=== PATIENT | female | born 1970 | race Caucasian/White ===

== ENCOUNTER → 2023-07-13 06:13 | Day surgery (SDC) | payer OTHER, SELFPAY ==
[2023-06-25 13:50] LABS: Hematocrit 37.2 % (37.0-47.0); Hemoglobin 13.1 g/dL (12.0-16.0); Mean Corp Hgb Conc. 35.2 g/dL (33.0-37.0); Mean Corpuscular Volume 93.7 fL (81.0-99.0); Mean Platelet Volume 9.2 fL (7.4-10.4); Platelet Count 387 10^3/uL (130-400); Red Blood Cell Count 3.97 10^6/uL (4.20-5.40); Red Cell Dist. Width 13.4 % (11.5-14.5); White Blood Cell Count 8.5 10^3/uL (4.8-10.8)
[2023-06-25 14:34] LABS: ALT (SGPT) 24 U/L (0-35); AST (SGOT) 35 U/L (14-36); Albumin 4.5 g/dl (3.5-5.0); Alkaline Phosphatase 87 U/L (38-126); Blood Urea Nitrogen 12 mg/dl (7-17); Calcium 9.8 mg/dl (8.4-10.2); Carbon Dioxide 23 mmol/L (22-30); Chloride 102 mmol/L (98-107); Estimated Creatinine Clearance 84 ml/min; Glucose 96 mg/dl (70-99); Potassium 4.6 mmol/L (3.5-5.1); Sodium 133 mmol/L (135-145); Total Bilirubin 0.3 mg/dl (0.2-1.3); eGFR > 60.00
[2023-07-13] VITALS (10 sets, daily range): BP systolic 72–116; BP diastolic 52–70
[2023-07-13] MEDS: NORMOSOL-R 1000 IV (07:50)
[2023-07-13] MEDS: SUBLIMAZE 25 MCG IV (10:52)
[2023-07-13] MEDS: TYLENOL 650 MG PO (11:54)
--- NOTE | 2023-07-13 12:28 | SUR.PHASEI ---
pacu addendum - patient to pacu post op - delirium - crying - confused to time and place, thinks she has pain - but more concerned with needing something to drink, 'wine would be good'. BP low but stable, reoriented to time and place, allowed to
verbalize, calms, bp improves - difficulty rating pain - eventually rates as 6/10. lower dose of fentanyl given with low BP and confusion. patient states pain has lessened but nose is ' sore.' Anxious for discharge and to use bathroom - refuses
bedpan. no bleeding. When SDS nurse arrives - describes pain at 6-7/10. agrees to take oral pain med in sds.
== END ==
LOC: SDS 06:13
PROVIDERS: ATTENDING PHYSICIAN Otolaryngology Facial Plastic Surgery; FAMILY PHYSICIAN Family Medicine
DX: J34.2 Deviated nasal septum (principal); J34.89 Other specified disorders of nose and nasal sinuses
CPT/HCPCS: 30520; 88300; 36415; 80053; 85027; 93005

== ENCOUNTER 2024-04-28 02:51 | Emergency (ER) | payer OTHER, SELFPAY ==
[2024-04-28 02:52] VITALS: BP 116/90
[2024-04-28 03:25] VITALS: BP 98/71
[2024-04-28 03:35] LABS: % Basophils 1.4 % (0-2); % Eosinophils 13.6 % (0-6); % Immature Granulocytes 0.2 % (0-0.5); % Lymphocytes 46.1 % (20.5-51.1); % Monocytes 7.7 % (1.7-9.3); Absolute Basophils 0.1 10^3/uL (0-0.2); Absolute Eosinophils 1.3 10^3/uL (0-0.7); Absolute Lymphocytes 4.3 10^3/uL (1.2-3.4); Absolute Monocytes 0.7 10^3/uL (0.1-0.6); Absolute Neutrophils 2.9 10^3/uL (1.4-6.5); Hematocrit 30.7 % (37.0-47.0); Hemoglobin 11.3 g/dL (12.0-16.0); Mean Corp Hgb Conc. 36.8 g/dL (33.0-37.0); Mean Corpuscular Hgb 33.6 pg (27.0-31.0); Mean Corpuscular Volume 91.4 fL (81.0-99.0); Mean Platelet Volume 8.7 fL (7.4-10.4); Nucleated Red Blood Cells % 0 %; Platelet Count 234 10^3/uL (130-400); Red Blood Cell Count 3.36 10^6/uL (4.20-5.40); Red Cell Dist. Width 13.4 % (11.5-14.5); White Blood Cell Count 9.3 10^3/uL (4.8-10.8)
[2024-04-28 03:47] LABS: ALT (SGPT) 31 U/L (0-35); AST (SGOT) 48 U/L (14-36); Albumin 4.2 g/dl (3.5-5.0); Alkaline Phosphatase 98 U/L (38-126); Blood Urea Nitrogen 8 mg/dl (7-17); Carbon Dioxide 21 mmol/L (22-30); Chloride 100 mmol/L (98-107); Glucose 103 mg/dl (70-99); Potassium 4.3 mmol/L (3.5-5.1); Sodium 130 mmol/L (135-145); Total Bilirubin 0.2 mg/dl (0.2-1.3); Total Protein 6.4 g/dl (6.3-8.2); eGFR > 60.00
[2024-04-28 03:49] LABS: PT 12.5 Sec (11.4-14.6)
--- NOTE | 2024-04-28 04:19 | ED.GENMED ---
History of Present Illness
General
Chief Complaint: Rectal Bleeding
Source: patient and family
Time Seen by Provider: 04/28/24 03:44
History of Present Illness
History of Present Illness:
53-year-old female who presents with rectal bleeding. The patient states that for about 2 years, she has had 'my colon hanging out'. Patient states that it seems to be getting worse. Patient sister states that now she has had bleeding and has had
blood into the toilet. Patient denies abdominal pain or vomiting.
Past History
Past History
ED Past Medical History: GERD and HTN
Phy Exam
Physical Exam
Physical Exam:
CONSTITUTIONAL Patient alert and oriented to person, place and time. Well-appearing. Vital signs reviewed.
HEAD atraumatic, normocephalic.
EYES eyelids normal to inspection, Extraocular muscles intact, Conjunctiva normal, Sclera normal.
NECK normal range of motion, Trachea midline, no jugular venous distention.
RESPIRATORY CHEST No respiratory distress noted, Chest expansion equal,
ABDOMEN No distention.
Rectal exam rectal prolapse noted. Reduced during exam. She does have excoriation of the prolapse segment
BACK normal inspection, no obvious deformities
UPPER EXTREMITY range of motion normal, Motor strength normal, no cyanosis, no edema.
LOWER EXTREMITY range of motion normal, Motor strength normal, no cyanosis, no edema.
NEURO Speech normal, No focal motor deficits, [place] coma scale 15, Memory normal, Cranial Nerves intact to screening exam.
SKIN skin warm, dry, and normal in color.
Course
Orders/Labs/Results
Orders:
Orders
04/28/24 03:23
Cardiac Monitoring- Treatment ONCE
04/28/24 03:25
ABO2 Urgent
BBK Wristband Number:
Associate notified that ABO2 has been ordered: SOBIA
Date: 04/28/24
Time: 03:41
Through Freight Engineer ID: [id number]
Complete Blood Count/With Diff Urgent
Comprehensive Metabolic Panel Urgent
PTT Urgent
Prothrombin Time Urgent
Abnormal Lab Results
04/28/24
03:25
RBC 3.36 L 10^6/uL
(4.20-5.40)
Hgb 11.3 L g/dL
(12.0-16.0)
Hct 30.7 L %
(37.0-47.0)
MCH 33.6 H pg
(27.0-31.0)
Absolute Lymphs (auto) 4.3 H 10^3/uL
(1.2-3.4)
Absolute Monos (auto) 0.7 H 10^3/uL
(0.1-0.6)
Absolute Eos (auto) 1.3 H 10^3/uL
(0-0.7)
Neutrophils % 31.0 L %
(42.2-75.2)
Eosinophils % 13.6 H %
(0-6)
Sodium 130 L mmol/L
(135-145)
Carbon Dioxide 21 L mmol/L
(22-30)
Creatinine 0.5 L mg/dL
(0.6-1.0)
Glucose 103 H mg/dl
(70-99)
AST 48 H U/L
(14-36)
04/28/24 03:25
04/28/24 03:25
Vital Signs
Initial and Last Documented VS:
Initial Vital Signs
Temp Pulse Resp BP Pulse Ox
97.8 F 102 22 116/90 97
04/28/24 02:52 04/28/24 02:52 04/28/24 02:52 04/28/24 02:52 04/28/24 02:52
Last Documented Vital Signs
Temp Pulse Resp BP Pulse Ox
97.8 F 83 20 98/71 96
04/28/24 02:52 04/28/24 04:04 04/28/24 04:04 04/28/24 03:25 04/28/24 04:04
MDM/Problems Addressed
Differential Diagnosis Includes:
Hemorrhoids, perianal abscess, rectal prolapse
MDM/Problems Addressed:
Rectal prolapse
*Pulse Oximetry
Patient hypoxic: no
*Critical Care Note
Total Time (30-74mins, 75-104mins- exclusive of procedures): Not Applicable
Data Reviewed
Source: patient and family
Patient Management
Escalation/DeEscalation of care consider admission/obs:
Rectal prolapse reduced. Recommended stool softeners and outpatient colorectal follow-up.
ED Attending Note
-
Portions of this chart may have been created with voice recognition software.� Occasional wrong word or��sound alike� substitutions may have occurred due to the inherent limitations of voice recognition software.
Discharge Plan
Departure
Patient Disposition: Home (Routine Discharge)
Date of Disposition: 04/28/24
Time of Disposition: 04:19
Patient with high blood pressure during this ER visit?: No
Discharge Problem:
Rectal prolapse
Instructions: Rectal prolapse in adults
Prescriptions:
No Action
lisinopril 20 mg Tablet
20 mg PO QPM
omeprazole 40 mg Capsule,Delayed Release(Dr/Ec)
40 mg PO BID
trazodone 100 mg Tablet
100 mg PO HS
amlodipine 10 mg Tablet
10 mg PO QPM
fluticasone propionate [Flonase Allergy Relief] 50 mcg/actuation Bernice,Suspension
2 spray INTRANASAL DAILY
multivitamin Tablet
1 tab PO BID
oxycodone 5 mg Tablet
5 mg PO Q6H PRN (Reason: pain)
duloxetine 60 mg Capsule,Delayed Release(Dr/Ec)
60 mg PO DAILY
Referrals:
Janeen Reyes PA-C [Family Provider] -
Mikhail Benavides MD [Active] -
Activity Restrictions/Additional Instructions:
Please avoid straining and keep your stool soft. Please see colorectal surgery in the next 1 week for follow-up and reevaluation. Return immediately for abdominal pain, intractable vomiting or any other concerns.
Interventions
Interventions:
*Risk Screen - Suicide Last Done: 04/28/24 02:52
*General Assessment Last Done: 04/28/24 03:19
*Neglect/Abuse Screening Last Done: 04/28/24 02:52
*ED- Fall Risk Assessment Last Done: 04/28/24 03:19
*ED COVID-19 Vaccine History Last Done: 04/28/24 03:19
*Nursing Disposition Last Done: 04/28/24 04:27
KR-Qoqyzk-Ikysqnnstu Assessment Last Done: 04/28/24 03:21
ED- Cardiac Assessment Last Done: 04/28/24 03:21
ED- Pulmonary Assessment Last Done: 04/28/24 03:21
Discharge Date and Time
Discharge Date/Time: 04/28/24 04:27
Print Language: UKRAINIAN
== END 2024-04-28 04:27 | disposition home or self-care (01) ==
LOC: EMR 02:51
PROVIDERS: EMERGENCY PHYSICIAN Emergency Medicine; FAMILY PHYSICIAN Physician Assistant
DX: K62.3 Rectal prolapse (principal); K62.5 Hemorrhage of anus and rectum; I10 Essential (primary) hypertension; K21.9 Gastro-esophageal reflux disease without esophagitis; Z91.040 Latex allergy status; Z91.048 Other nonmedicinal substance allergy status
CPT/HCPCS: 99283; 80053; 85025; 85610; 85730; 86900; 86901

== ENCOUNTER 2024-07-15 06:22 | Day surgery (SDC) | payer OTHER, SELFPAY | END 2024-07-15 13:02 | disposition home or self-care (01) | LOC: GI 06:22 | PROVIDERS: ATTENDING PHYSICIAN Surgery | DX: K62.89 Other specified diseases of anus and rectum (principal); K62.5 Hemorrhage of anus and rectum | CPT/HCPCS: 45378 ==

== ENCOUNTER 2024-09-02 06:06 | Inpatient (IN) | payer OTHER, SELFPAY ==
[2024-08-15 13:55] LABS: Hematocrit 36.3 % (37.0-47.0); Hemoglobin 13.1 g/dL (12.0-16.0); Mean Corp Hgb Conc. 36.1 g/dL (33.0-37.0); Mean Corpuscular Volume 94.3 fL (81.0-99.0); Platelet Count 359 10^3/uL (130-400); Red Cell Dist. Width 13.4 % (11.5-14.5)
[2024-08-15 14:03] VITALS: BMI 18.3
[2024-08-15 14:06] LABS: Blood Urea Nitrogen 4 mg/dl (7-17); Calcium 9.6 mg/dl (8.4-10.2); Carbon Dioxide 27 mmol/L (22-30); Chloride 103 mmol/L (98-107); Estimated Creatinine Clearance 76 ml/min; Glucose 81 mg/dl (70-99); Potassium 4.2 mmol/L (3.5-5.1); Sodium 134 mmol/L (135-145); eGFR > 60.00
[2024-08-27 10:52] LABS: INR 0.89; PT 12.6 Sec (11.4-14.6)
[2024-08-27 10:54] LABS: APTT 25.8 Sec (23.4-35.0)
[2024-08-27 12:24] LABS: Glycohemoglobin (HgbA1c) 4.6 % (4.0-5.6)
[2024-08-27 14:16] VITALS: BMI 18.7
[2024-09-02] VITALS (15 sets, daily range): BP systolic 113–145; BP diastolic 71–96; BMI 18.7
[2024-09-02] MEDS: NORMOSOL-R/PLASMALYTE-A 1000 IV ×2 (07:11→15:28)
[2024-09-02] MEDS: HEPARIN 5000 UNITS SC (07:14)
[2024-09-02] MEDS: TYLENOL 1000 MG PO ×3 (07:16→23:28)
[2024-09-02] MEDS: CELEBREX 200 MG PO (07:16)
[2024-09-02] MEDS: LYRICA 150 MG PO (07:16)
--- NOTE | 2024-09-02 13:15 | W.IMMPOSTOP ---
Addendum entered and electronically signed by Mikhail Benavides MD 09/02/24 18:11:
updated patient's sister over the phone postoperatively; update patient just now; complaining of eye burning and redness, otherwise doing well; d/w anesthesia who will evaluate
Original Note:
Surgical Immed Post Op Note
-
Primary Surgeon: Mikhail Benavides MD
Assisting Surgeon: None
Pre-op Diagnosis: Rectal prolapse, pelvic organ prolapse
Post-op Diagnosis: Rectal prolapse, pelvic organ prolapse, endometriosis
Procedure Performed: Robotic ventral mesh rectopexy, lysis of adhesions, flexible sigmoidoscopy, laparoscopic TAP block; hysterectomy with bilateral salpingectomy, mesh sacrocolpopexy and cystoscopy by Dr. Contreras
Anesthesia Type: General
Specimen / Cultures: Per Dr. Contreras, uterus, fallopian tubes, endometrial implants
Estimated Blood Loss: 50 mL
Complications: None
Operative Findings: Entered with Veress needle, placed 4 ports transversely and vector control assistant port in the RUQ; lysed adhesions from the rectosigmoid to the left pelvic brim; easily identified the bilateral ureters, bilateral iliac arteries and veins;
incised the peritoneum overlying the sacral promontory and took this down into the right lower pelvis, raising a right pararectal peritoneal flap; patient had attenuated rectovaginal septum with the anterior peritoneal reflection nearly above the
perineal body; performed flexible sigmoidoscopy to identify relationship of rectum and vagina; moderate amount of liquid stool that was irrigated and suctioned away; Dr. Contreras performed hysterectomy and bilateral salpingectomy, dictated by him;
cleared the anterior rectum from the peritoneum and fat pad; secured limb of Y�mesh to the perineal body and distal anterior rectum with 4 rows of 3-0 PDS; performed flexible sigmoidoscopy and confirmed no full-thickness sutures through the rectum;
Dr. Contreras secured the other limb of the Y�mesh to the vagina; checked tension closely and applied adequate tension to both the vagina and rectum and secured the tail of the mesh to the sacral promontory; close the peritoneal defect with running
3-0 V-lock; assured hemostasis; performed laparoscopic TAP block; close skin in usual fashion
--- NOTE | 2024-09-02 13:24 | OR.RPT ---
Operative Report
Operative Report
DATE OF OPERATION: 09/02/2024
SURGEON:� Mikhail Benavides MD
PREOPERATIVE DIAGNOSIS: Rectal prolapse, pelvic organ prolapse
POSTOPERATIVE DIAGNOSIS: Rectal prolapse, pelvic organ prolapse, endometriosis
OPERATION: Robotic ventral mesh rectopexy, lysis of adhesions greater than 30 minutes, flexible sigmoidoscopy, laparoscopic TAP block; hysterectomy with bilateral salpingectomy, mesh sacrocolpopexy, excision of endometrial implants and cystoscopy by
Dr. Contreras
ASSISTANTS:
1.� None
ANESTHESIA:� General
ESTIMATED BLOOD LOSS: 50 mL
FINDINGS:
1.� Redundant rectosigmoid colon with attenuated rectovaginal septum
2.� Secured one limb of Y�mesh to the distal anterior rectum and the other limb to the vagina; secured the tail to the sacral promontory
3.� Flexible sigmoidoscopy confirming no full-thickness suture and no undue tension
SPECIMENS:
1.� Per Dr. Contreras, uterus, bilateral fallopian tubes, endometrial implants
DRAINS: None
COMPLICATIONS: No immediate complications.
INDICATIONS:� The patient is a 53-year-old female who presented with rectal bleeding and rectal prolapse.� On exam, she was found to have a full rectal prolapse of about 3 cm.� She was also evaluated by Dr. Contreras, who identified concomitant pelvic
organ prolapse.� I recommended combination surgery for rectal fixation and pelvic organ prolapse.� The operation was discussed with the patient in detail, including the risks, benefits and alternatives. Risks described included, but not limited to,
bleeding, infection, damage to nearby structures (i.e.- ureter, bowel, solid organs), incisional hernia, conversion to open, recurrence of prolapse, complications with mesh if used (ie- mesh infection, mesh erosion), conversion to another type of
rectal prolapse repair (ie- suture rectopexy), and anesthetic risks. The patient understood and agreed to proceed.
PROCEDURE IN DETAIL:� The patient was taken to the operating room and placed on the operating table in supine position. Sequential compression devices were placed bilaterally. General anesthesia was induced and the patient was intubated without
complication. The patient was placed in lithotomy position with both arms tucked.� Huff catheter was placed with sterile technique.� The abdomen was shaved, prepped and draped in a sterile fashion. A time-out was performed verifying the correct
patient, procedure, operative site, positioning, and special equipment.� Preoperative antibiotics were given.� A marking pen was used to michael out the midline.
An stab incision at [place]'s point was made with an 11 blade scalpel.� A Veress needle was used to gain abdominal access.� After 3 clicks, the insufflation was connected to the Veress needle and the opening pressure was noted to be less than 8
mmHg.� The abdomen was insufflated to a pressure of 12 mmHg.� An 8 mm incision was made in the left upper abdomen at the anterior axillary line.� An 8 mm robotic trocar was inserted.� The robotic camera was advanced and intra-abdominal placement was
confirmed.� The abdomen was examined. No injuries were noted from port entry or from the Veress needle. Transversely across the abdomen, 3 more 8 mm ports were placed in a similar fashion, taking care to avoid injury to the epigastric vessels.� An 8
mm family readiness support assistant port was placed in the right upper quadrant under direct visualization.� The patient was placed in steep Trendelenburg and the small bowel was retracted from the pelvis with a laparoscopic grasper.� The sigmoid colon was redundant and a
loop of colon was seen in the pelvis with adhesions along the left pelvic brim.� The robot was docked and targeted to the pelvis. From right to left, the instruments introduced were the scissors, camera, bipolar grasper and tip-up grasper,
respectively.
Due to minimal retroperitoneal adiposity, the vital structures of the pelvis were easily visualized, including the bilateral ureters and iliac vessels.� The sigmoid colon was retracted and the adhesions to the left pelvis were taken down sharply,
taking care to avoid injury to the ureter.� There were some adhesions to the left ovary as well, which were lysed.� The rectosigmoid was retracted from the pelvis to expose the right aspect of the rectum.� I incised the peritoneum overlying the
sacral promontory and cleared an area of the anterior longitudinal ligament for the fixation stitches.� I extended my peritoneal incision down into the pelvis, taking care to avoid injury to the hypogastric nerves and right ureter.� I raised a
peritoneal flap for coverage of the mesh.� The rectovaginal septum was essentially obliterated and the anterior peritoneal reflection was overlying the perineal body.� I extended my peritoneal flap across the anterior peritoneal reflection.� I used
the uterine retractor to help identify the vaginal canal and keep it safe from my dissection.� Additionally, I performed a flexible sigmoidoscopy at this point.� I passed a sigmoidoscope transanally and advanced under direct visualization.� There
was a moderate amount of liquid stool, which was irrigated and suctioned away.� I confirmed the relationship between the rectum, perineal body and vaginal canal.
Dr. Contreras took the controls and performed his portion of the surgery, including hysterectomy and bilateral salpingectomy with oophorectomy.� During my pelvic dissection, identified lesions that appeared to be endometrial implants.� I showed these
implants to Dr. Contreras, who agreed and excised these lesions with his portion of the surgery.� He removed the specimen.� I took over the controls.� I cleared the anterior rectum to create a landing zone for the mesh.� I secured 1 limb of the [employer] Y�mesh to the perineal body and distal anterior rectum using 4 rows of 3-0 PDS, taking care to obtain seromuscular bites without full-thickness bites and to include the entire width of the anterior rectum.� Dr. Contreras took the controls
and secured the other limb of the Y�mesh to the vaginal canal.� He placed the mesh under tension and we assessed the rectum and vagina, adjusting the mesh to place adequate tension to support both the posterior and middle compartments of the pelvic
floor without placing either under undue tension. Once the location on the mesh was selected and agreed on by both of us, he placed fixation stitches from the mesh to the anterior ligament of the sacral promontory.� I performed another flexible
sigmoidoscopy and confirmed no full-thickness bites through the mucosa and no severe kinking of the rectum.
I took the controls and closed the peritoneum with a running 3-0 Vicryl stitch, ensuring no exposed mesh or retroperitoneum. The robotic instruments were removed and the robot was undocked.� Using laparoscopic visualization, a TAP block was
performed using a total of 30 mL of 0.25% Marcaine with epinephrine mixed with dexamethasone and injecting in the transverse abdominis plane bilaterally. The remaining ports were removed under direct visualization and no bleeding was noted.� The
incisions were then irrigated.� The remaining 30 cc of 0.25% Marcaine with epinephrine mixed with dexamethasone were injected around the incisions.� The incisions were closed with running subcuticular 4-0 Monocryl and dressed with Dermabond.
At this point, the procedure was complete. The patient was awoken and extubated without complication. All needle, sponge and instrument counts were reported as correct. The patient tolerated the procedure well and was transferred to the recovery
room in stable condition.
DICTATED BY:� Mikhail Benavides MD
[2024-09-02] MEDS: ZOFRAN 4 MG IV (13:34)
[2024-09-02] MEDS: TORADOL 15 MG IV ×2 (15:28→23:27)
--- NOTE | 2024-09-02 16:12 | VATNOTE ---
ice bag given to patient for extremely itchy eyes post surgery by this VAT RN. PCN made aware.
[2024-09-02] MEDS: NORVASC 10 MG PO (16:26)
[2024-09-02] MEDS: BENADRYL 50 MG PO (16:26)
--- NOTE | 2024-09-02 16:31 | PTCARENOTE ---
Received into room 2110 from PACU. Repeated complaints of 'burning' eyes. Dr. Kennedy weeks, ordered PO Benadryl provided. Also flushed eyes w/ saline bullets.
[2024-09-02] MEDS: PROTONIX 40 MG PO (19:33)
[2024-09-02] MEDS: ROXICODONE 5 MG PO (20:20)
[2024-09-02] MEDS: PREDNISOLONE ACETATE 0.12% 1 DROP OPHTH (23:28)
[2024-09-02] MEDS: DESYREL 100 MG PO (23:28)
--- NOTE | 2024-09-02 23:55 | PTCARENOTE ---
Pt ambulated in hallway w standby assist w/o difficulty. Reported no pain. Care ongoing.
[2024-09-03 03:00] VITALS: BP 127/83
[2024-09-03] MEDS: TYLENOL 1000 MG PO ×4 (05:10→23:34)
[2024-09-03] MEDS: TORADOL 15 MG IV ×4 (05:11→21:38)
[2024-09-03] MEDS: ROXICODONE 5 MG PO ×2 (05:21→17:47)
[2024-09-03 06:00] VITALS: BMI 18.1
[2024-09-03 06:15] LABS: Hematocrit 31.9 % (37.0-47.0); Hemoglobin 11.4 g/dL (12.0-16.0); Mean Corp Hgb Conc. 35.7 g/dL (33.0-37.0); Mean Corpuscular Volume 94.7 fL (81.0-99.0); Nucleated Red Blood Cells % 0 %; Platelet Count 307 10^3/uL (130-400); Red Cell Dist. Width 13.2 % (11.5-14.5)
[2024-09-03 06:40] LABS: Blood Urea Nitrogen 7 mg/dl (7-17); Calcium 8.9 mg/dl (8.4-10.2); Carbon Dioxide 25 mmol/L (22-30); Chloride 100 mmol/L (98-107); Estimated Creatinine Clearance 75 ml/min; Glucose 98 mg/dl (70-99); Magnesium 2.2 mg/dl (1.6-2.3); Potassium 4.4 mmol/L (3.5-5.1); Sodium 128 mmol/L (135-145); eGFR > 60.00
[2024-09-03 07:25] VITALS: BP 134/65
--- NOTE | 2024-09-03 08:22 | W.PN.GYN ---
Today's Communication / Plan
-
1. d/c gore
2. dispo ok per urogyn, awaiting colorectal recommendations
Physician Note
-
Assessment and Plan:
53 yo woman POD 1 s/p robotic TLH, b/l salpingecotmy, sacrocolpopexy and rectopexy with mesh: patient doing well and meeting postop milestones.
Postoperative care
-D/c gore today
-no vaginal bleeding
-cbc: WNL
-bmp: WNL
-uop adequate
-diet: per colorectal surgery
-Dispo: ok for discharge from urogyn standpoint
Subjective:
no acute complaints
denies fevers or chills
minimal postop pain
ambulating in hallway
gore catheter in place
passing flatus
Objective:
Intake and Output
09/01/24 09/02/24 09/03/24 09/04/24
06:59 06:59 06:59 06:59
Intake Total 2190 / 2190
Output Total 3450 / 3450
Balance -1260 / -1260
Intake:
Oral fluids 1440 / 1440
IV fluids (Total) 750 / 750
normosal 150 / 150
Output:
Urine, Gore 3450 / 3450
Vital Signs
Temp Pulse Resp BP Pulse Ox
99.1 F 91 16 127/83 97
09/03/24 03:00 09/03/24 03:00 09/03/24 03:00 09/03/24 03:00 09/03/24 03:00
Lab Results
09/03/24 05:48
09/03/24 05:48
Exam:
Abdomen: soft, nontender, nondistended
: minimal spotting, gore in place
Incisions: clean, dry, intact
[2024-09-03] MEDS: PREDNISOLONE ACETATE 0.12% 1 DROP OPHTH ×4 (09:14→21:38)
[2024-09-03] MEDS: PROTONIX 40 MG PO ×2 (09:14→20:21)
[2024-09-03] MEDS: CYMBALTA DELAYED RELEASE 60 MG PO (09:14)
[2024-09-03] MEDS: RELISTOR 12 MG SC (09:16)
--- NOTE | 2024-09-03 09:44 | W.PN.CRS1 ---
Today's Communication / Plan
-
As below
Assessment/Plan
-
53-year-old female with PMH of anxiety, HTN, GERD, migraines was found to have rectal prolapse associated with pelvic organ prolapse, presented for elective surgery
POD 1 robotic ventral mesh rectopexy with hysterectomy, bilateral salpingectomy and sacrocolpopexy by Dr. Contreras
AFVSS
WBC 8.1, Hb 11.4 from 13.1, CR 0.5, UOP 3.4 L
� Continue regular diet (patient has not had solid food since surgery yet)
� Continue pain control with Tylenol, Toradol, oxycodone and Dilaudid as needed; continue Relistor daily
� Start DVT PPx with Lovenox
� DC Huff, monitor for void
� Encourage I-S and OOB
� Appreciate Dr. Contreras
Dispo�if voiding, tolerating food and pain controlled by this afternoon, okay for DC; otherwise, DC tomorrow
Subjective Data
Subjective Data
Date of Service: September 03, 2024
Was seen by anesthesia yesterday and given steroid eyedrops. Her eyes feel much better today.
Denies N/V, having pain near incisions, but somewhat controlled with pain medicine.
Passing flatus, no stools.
Huff in place
Patient was OOB yesterday in the [facility]
Objective Data
-
Vital Signs
Temp Pulse Resp BP Pulse Ox
98.7 F 89 18 134/65 98
09/03/24 07:25 09/03/24 07:25 09/03/24 07:25 09/03/24 07:25 09/03/24 07:25
Intake & Output
09/02/24 09/03/24 09/04/24
06:59 06:59 06:59
Intake Total 2190 / 2190 240 / 240
Output Total 3450 / 3450 350 / 350
Balance -1260 / -1260 -110 / -110
Intake:
Oral fluids 1440 / 1440 240 / 240
IV fluids (Total) 750 / 750
normosal 150 / 150
Output:
Urine, Huff 3450 / 3450 350 / 350
Lab Results
09/03/24 05:48
09/03/24 05:48
Physical Exam
-
General: No Acute Distress and AOx3
HEENT: Grossly Normal
Abdomen: Soft, Non Distended, Tender (Appropriately tender near incisions), No Guarding and No Rebound
Skin: Warm and Dry
Wound: No Signs of Infection and Dressing in Place (Dermabond)
[2024-09-03 11:25] VITALS: BP 119/76
[2024-09-03 12:10] VITALS: BMI 18.1
[2024-09-03] MEDS: ZOFRAN 4 MG IV (14:31)
--- NOTE | 2024-09-03 14:34 | CM ---
Addendum entered by Kassandra Velasquez 09/03/24 16:08:
Attempted to meet with patient again to complete initial assessment. Sleeping soundly. Does not respond to calling of name or light touch. Will defer at this time.
Original Note:
POD #1 Repair rectal prolapse/pelvic organ prolapse. Attempted initial assessment. Patient sleeping soundly. Will visit again.
[2024-09-03 16:23] VITALS: BP 121/86
[2024-09-03] MEDS: LOVENOX 30 MG SC (17:34)
[2024-09-03] MEDS: NORVASC 10 MG PO (17:34)
--- NOTE | 2024-09-03 20:28 | PTCARENOTE ---
Pt took ~ 35% of dinner tray including all of her cereal without feeling nauseous/ bloated. Pt reported passing flatus. No c/o pain at this time.
[2024-09-03] MEDS: DESYREL 100 MG PO (21:38)
[2024-09-03 23:00] VITALS: BP 112/75
[2024-09-04] MEDS: ROXICODONE 5 MG PO (01:15)
[2024-09-04] MEDS: TYLENOL 1000 MG PO (04:57)
[2024-09-04] MEDS: TORADOL 15 MG IV ×2 (04:58→10:19)
[2024-09-04 06:00] VITALS: BMI 17.8
[2024-09-04 06:55] LABS: Hematocrit 34.0 % (37.0-47.0); Hemoglobin 11.9 g/dL (12.0-16.0); Mean Corp Hgb Conc. 35.0 g/dL (33.0-37.0); Mean Corpuscular Volume 95.2 fL (81.0-99.0); Nucleated Red Blood Cells % 0 %; Platelet Count 307 10^3/uL (130-400); Red Cell Dist. Width 13.1 % (11.5-14.5)
[2024-09-04 07:22] LABS: Blood Urea Nitrogen 4 mg/dl (7-17); Calcium 9.4 mg/dl (8.4-10.2); Carbon Dioxide 26 mmol/L (22-30); Chloride 103 mmol/L (98-107); Estimated Creatinine Clearance 74 ml/min; Glucose 101 mg/dl (70-99); Potassium 4.0 mmol/L (3.5-5.1); Sodium 133 mmol/L (135-145); eGFR > 60.00
[2024-09-04 07:30] VITALS: BP 120/83
--- NOTE | 2024-09-04 08:46 | W.PN.CRS1 ---
Addendum entered and electronically signed by Mikhail Benavides MD 09/04/24 12:47:
For CDI purposes:
Additional diagnoses as indicated
Anemia, most likely due to hemodilution only
Hyponatremia, clinically insignificant
Underweight, BMI 17.8
Original Note:
Today's Communication / Plan
-
As below
Assessment/Plan
-
53-year-old female with PMH of anxiety, HTN, GERD, migraines was found to have rectal prolapse associated with pelvic organ prolapse, presented for elective surgery
POD 2 robotic ventral mesh rectopexy with hysterectomy, bilateral salpingectomy and sacrocolpopexy by Dr. Contreras
AFVSS
WBC 8.1, Hb 11.9 from 11.4, CR 0.4
� Continue regular diet
� Continue pain control with Tylenol, Toradol, oxycodone and Dilaudid as needed; continue Relistor daily
� Continue DVT PPx with Lovenox
� Encourage I-S and OOB
� Appreciate Dr. Contreras
Dispo�okay for discharge
Subjective Data
Subjective Data
Date of Service: September 04, 2024
No overnight events. Had some nausea yesterday afternoon requiring Zofran.
Pain controlled.
Denies nausea this morning. Tolerating diet.
+flatus +BMs (small, soft) +voiding
Pt is OOB.
Very anxious to go home
Objective Data
-
Vital Signs
Temp Pulse Resp BP Pulse Ox
98.6 F 65 16 120/83 98
09/04/24 07:30 09/04/24 07:30 09/04/24 07:30 09/04/24 07:30 09/04/24 07:30
Intake & Output
09/03/24 09/04/24 09/05/24
06:59 06:59 06:59
Intake Total 2190 / 2190 820 / 820
Output Total 3450 / 3450 900 / 900
Balance -1260 / -1260 -80 / -80
Intake:
Oral fluids 1440 / 1440 720 / 720
IV fluids (Total) 750 / 750 100 / 100
normosal 150 / 150
Output:
Urine, Huff 3450 / 3450 350 / 350
Urine, Voided 550 / 550
Other:
Number of approximated MODERATE 1
amounts of urine
Lab Results
09/04/24 05:50
09/04/24 05:50
Physical Exam
-
General: No Acute Distress and AOx3
HEENT: Grossly Normal
Abdomen: Soft, Non Distended, Tender (Appropriately tender near incisions), No Guarding and No Rebound
Skin: Warm and Dry
Wound: No Signs of Infection and Dressing in Place (Dermabond)
--- NOTE | 2024-09-04 08:57 | W.PN.GYN ---
Today's Communication / Plan
-
discharge per Dr. Benavides's team
Physician Note
-
53 yo woman POD 2 s/p robotic TLH, b/l salpingecotmy, sacrocolpopexy and rectopexy with mesh: patient doing well and meeting postop milestones
Patient was evaluated on AM rounds. Patient is requesting to be discharged today. Yesterday she felt some nausea but she attributed to over eating at once. Today she has been able to tolerate cereal and water. She passed voiding trial yesterday and
is passing flatus. She reports pain is controlled with po meds. Denies vaginal bleeding today. She denies nausea, vomiting, chest pain, SOB.
O :
GA: Well appearing female in NAD
HEENT: Normocephalic, EOMI
Abd: soft, nondistended, sutures intact with dermabond, incisional tenderness
: no vaginal bleeding noted in pad
Ext: no lower extremity edema
Vital Signs
Temp Pulse Resp BP Pulse Ox
98.6 F 65 16 120/83 98
09/04/24 07:30 09/04/24 07:30 09/04/24 07:30 09/04/24 07:30 09/04/24 07:30
Intake and Output
09/03/24 09/04/24 09/05/24
06:59 06:59 06:59
Intake Total 2190 / 2190 820 / 820
Output Total 3450 / 3450 900 / 900
Balance -1260 / -1260 -80 / -80
Intake:
Oral fluids 1440 / 1440 720 / 720
IV fluids (Total) 750 / 750 100 / 100
normosal 150 / 150
Output:
Urine, Huff 3450 / 3450 350 / 350
Urine, Voided 550 / 550
Other:
Number of approximated MODERATE 1
amounts of urine
Laboratory Results
09/04/24 05:50
09/04/24 05:50
A:
53 yo woman POD 2 s/p robotic TLH, b/l salpingecotmy, sacrocolpopexy and rectopexy with mesh: patient doing well and meeting postop milestones
Plan
- Discharge per Dr. Benavides
- Followup in office in two weeks for postop exam.
--- NOTE | 2024-09-04 09:25 | CM ---
CM following re: discharge planning.
Reviewed pt's chart, met with pt.
Pt is a 53 year old female, admitted with primary dx of POD 2 robotic ventral mesh rectopexy with hysterectomy, bilateral salpingectomy and sacrocolpopexy.
Pt reports she lives alone in a condo, 5 steps to enter, has no children, has supportive sister and a brother. Pt described herself as independent in all areas [employer]. No DME, VN or SNF history.
Discharge order noted. Pt is aware, expressed her agreement with discharge and pt stated her sister will transport home.
No after care VN services indicated.
PCP: Jay Carpenter
Pharmacy: [facility].
D/C plan: home no needs. Sister to transport.
[2024-09-04] MEDS: CYMBALTA DELAYED RELEASE 60 MG PO (10:17)
[2024-09-04] MEDS: PROTONIX 40 MG PO (10:17)
[2024-09-04] MEDS: PREDNISOLONE ACETATE 0.12% 1 DROP OPHTH (10:17)
[2024-09-04] MEDS: RELISTOR 12 MG SC (10:18)
--- NOTE | 2024-09-04 10:53 | PN.CDI ---
CDI
- -
CDI:
Physician Documentation Request
Admit Date: 09/02/24 06:06
Dear Doctor Kennedy,
Clinical Indicators:
Height: 5 ft 2 in
Weight: 97 lbs 6.4 oz
BMI: 17.8
09/03 note/assessment: She states that her usual weight is 110lbs. She has been losing weight... BMI: 18.1
(underweight).'
If possible, please provide an associated diagnosis related to the abnormal BMI (< or = to 19), such as:
Underweight
Weight loss
BMI is not significant
Other, please specify
Use of terms such as suspected, likely, concern for, or probable (associated with a specific diagnosis that is being evaluated, monitored, or treated as if it exists) are acceptable and can be coded in the inpatient setting, when documented at the
time of discharge.
Thank you,
KRISTA Stern RN
CDI Specialist
available via tiger text
Please use your independent medical judgment in providing your response.
--- NOTE | 2024-09-04 10:58 | PN.CDI ---
CDI
- -
CDI:
Physician Documentation Request
Admit Date: 09/02/24 06:06
Dear Doctor Kennedy,
Clinical Indicators:
Patient admitted with rectal prolapse; s/p ventral mesh rectopexy with hysterectomy, bilateral salpingectomy and sacrocolpopexy 09/02.
Anesthesia Report: IVF administered: Normosol 1600 ml
Sodium levels:
09/03/24 09/04/24
05:48 05:50
Sodium 128 L 133 L
Based on the above, could you clarify in the progress notes, the appropriate diagnosis, if significant, that supports the above abnormalities and additional evaluation, monitoring and/or treatment rendered:
Hyponatremia
Abnormal lab values, clinically insignificant
Other, please specify
Use of terms such as suspected, likely, concern for, or probable (associated with a specific diagnosis that is being evaluated, monitored, or treated as if it exists) are acceptable and can be coded in the inpatient setting, when documented at the
time of discharge.
Thank you,
KRISTA Stern RN
CDI Specialist
available via tiger text
Please use your independent medical judgment in providing your response.
[2024-09-04 11:14] VITALS: BP 157/96
--- NOTE | 2024-09-04 11:47 | PN.CDI ---
CDI
- -
CDI:
Physician Documentation Request
Admit Date: 09/02/24 06:06
Dear Doctor Kennedy,
Clinical Indicators:
Patient admitted with rectal prolapse; s/p ventral mesh rectopexy with hysterectomy, bilateral salpingectomy and sacrocolpopexy 09/02.
09/02 Anesthesia Report: Blood loss: 60 ml IVF 1600 ml
Hgb/Hct trend:
08/15/24 09/03/24
13:07 05:48
Hgb 13.1 11.4 L
Based on the above, could you clarify in the progress notes, the appropriate diagnosis, if significant, that supports the above abnormalities and additional evaluation, monitoring and/or treatment rendered:
Anemia, due to acute blood loss and hemodilution
Anemia due to hemodilution only
Other, please specify
Use of terms such as suspected, likely, concern for, or probable (associated with a specific diagnosis that is being evaluated, monitored, or treated as if it exists) are acceptable and can be coded in the inpatient setting, when documented at the
time of discharge.
Thank you,
KRISTA Stern RN
CDI Specialist
available via tiger text
Please use your independent medical judgment in providing your response.
== END 2024-09-04 11:53 | disposition home or self-care (01) | DRG 330 ==
LOC: 2 SOUTH 06:06
PROVIDERS: Obstetrics & Gynecology; Physician Assistant; ADMITTING PHYSICIAN Surgery; FAMILY PHYSICIAN Family Medicine
PROC: 0UT9FZZ Resection of Uterus, Via Natural or Artificial Opening With Percutaneous Endoscopic Assistance (ICD-10-PCS; 2024-09-02)
PROC: 8E0W8CZ Robotic Assisted Procedure of Trunk Region, Via Natural or Artificial Opening Endoscopic (ICD-10-PCS; 2024-09-02)
PROC: 0DQP0ZZ Repair Rectum, Open Approach (ICD-10-PCS; 2024-09-02)
PROC: 0WU Anatomical Regions, General, Supplement (ICD-10-PCS; 2024-09-02)
PROC: 0USG8ZZ Reposition Vagina, Via Natural or Artificial Opening Endoscopic (ICD-10-PCS; 2024-09-02)
PROC: 0UT7FZZ Resection of Bilateral Fallopian Tubes, Via Natural or Artificial Opening With Percutaneous Endoscopic Assistance (ICD-10-PCS; 2024-09-02)
DX: K62.3 Rectal prolapse (principal); K62.5 Hemorrhage of anus and rectum; N81.9 Female genital prolapse, unspecified; N73.6 Female pelvic peritoneal adhesions (postinfective); Z91.048 Other nonmedicinal substance allergy status; N80.9 Endometriosis, unspecified
CPT/HCPCS: 36415; 71046; 80048; 83036; 83735; 85025; 85027; 85610; 85730; 86850; 86900; 86901; 88305; 93005; C1713; C1763; G0123